=== PATIENT | male | born 1960 | race Native Hawaiian/Other Pacific Islander ===

== ENCOUNTER 2016-08-25 09:44 | Outpatient (CLI) | payer BC | END 2016-08-25 19:13 | disposition home or self-care (01) | LOC: RAD 09:44 | DX: M54.2 Cervicalgia (principal); M89.8X1 Other specified disorders of bone, shoulder; M54.17 Radiculopathy, lumbosacral region ==

== ENCOUNTER 2019-06-20 09:09 | Outpatient (CLI) | payer BC | END 2019-06-20 20:32 | disposition home or self-care (01) | LOC: RAD 09:09 | DX: R07.89 Other chest pain (principal); M54.2 Cervicalgia ==

== ENCOUNTER 2019-07-24 09:18 | Outpatient (CLI) | payer BC | END 2019-07-24 19:23 | disposition home or self-care (01) | LOC: MRI 09:18 | DX: M47.812 Spondylosis without myelopathy or radiculopathy, cervical region (principal) ==

== ENCOUNTER 2020-07-16 09:49 | Outpatient (CLI) | payer BC | END 2020-07-16 22:25 | disposition home or self-care (01) | LOC: RAD 09:49 | PROVIDERS: ATTEND Physician Assistant | DX: L03.90 Cellulitis, unspecified (principal); M54.9 Dorsalgia, unspecified; M25.569 Pain in unspecified knee; M54.2 Cervicalgia ==

== ENCOUNTER 2021-10-20 10:46 | Outpatient (CLI) | payer BC | END 2021-10-20 19:35 | disposition home or self-care (01) | LOC: CT 10:46 | PROVIDERS: ATTEND Orthopaedic Surgery | DX: M54.2 Cervicalgia (principal) ==

== ENCOUNTER 2022-08-12 13:30 | Emergency (ER) | payer BC ==
[~2022-08-12] VITALS: Ht 177.8 cm; Wt 120.2 kg
[2022-08-12 13:30] VITALS: TEMP 97.2
[2022-08-12 13:53] LABS: PLATELET COUNT 277 K/uL (142-355)
[2022-08-12 14:03] LABS: POTASSIUM 3.9 mmol/L (3.6-5.2)
[2022-08-12 14:55] VITALS: BP 165/89
== END 2022-08-12 15:00 | disposition home or self-care (01) ==
LOC: ED 13:30
PROVIDERS: Emergency Medicine Emergency Medical Services
DX: T63.441A Toxic effect of venom of bees, accidental (unintentional), initial encounter (principal); L29.8 Other pruritus; X58.XXXA Exposure to other specified factors, initial encounter; Y92.89 Other specified places as the place of occurrence of the external cause
CPT/HCPCS: 36415; 80053; 84484; 85027; 93005; 96360; 96374; 96375; 99284; J1200; J2930